=== PATIENT | male | born 1945 | race Caucasian/White ===

== ENCOUNTER 2016-11-03 09:36 | Observation (INO) | payer OTHER, MEDICARE ==
[~2016-11-03] VITALS: Ht 168.9 cm; Wt 73.0 kg
[~2016-11-03 09:36] MED LIST: ALIGN4 MG PO; AUGMENTIN875 MG PO; BARACLUDE0.5 MG PO; BUPROPION HCL150 M2; CLONAZEPAM0.5 MG PO; CLONIDINE HCL0.3 MG; CYMBALTA30 MG; CYMBALTA60 MG; DICYCLOMINE HCL10 MG PO; EFFEXOR XR75 MG PO; LABETALOL HCL200 MG; LISINOPRIL20 MG PO; LOPERAMIDE2 M1 PO; METRONIDAZOLE500 MG PO; NEXIUM20 MG PO; NEXIUM40 MG; QUESTRAN POWDE378 GM PO; QUETIAPINE FUM200 MG; SEROQUEL300 MG PO; TAMSULOSIN HCL0.4 MG; TAMSULOSIN HCL0.4 MG PO; VENLAFAXINE HCL75 M1 PO; WELLBUTRIN SR150 MG PO; ZOFRAN8 MG PO
[2016-11-03 10:26] LABS: HEMATOCRIT 49.4 % (38.0-50.0); MCH 31.1 PG (29.0-34.0); MCHC 33.2 G/DL (30.0-36.0); MCV 93.6 FL (86-99); MEAN PLAT.VOLUME 9.7 uM^3 (9.0-12.4); PLATELET COUNT 196 K/uL (156-360); RBC DIS.WIDTH-CV 12.8 % (11.8-14.6); RED BLOOD COUNT 5.28 M/uL (4.00-5.50); WHITE BLOOD COUNT 9.8 K/uL (4.1-10.2)
[2016-11-03 10:37] LABS: CHLORIDE 102 mEq/L (99-109)
[2016-11-03 10:38] LABS: SODIUM 138 mEq/L (136-147)
[2016-11-03 10:39] LABS: GLUCOSE 138 mg/dL (70-99)
[2016-11-03 10:41] LABS: ANION GAP 8 MEQ/L (2-14)
[2016-11-03 10:43] LABS: GFR ESTIMATE (CALCULATED) > 59 mL/min/
[2016-11-03 10:44] LABS: UREA NITROGEN (BUN) 19 mg/dL (9-23)
[2016-11-03 10:48] LABS: TROP-I INTERPRETATION NEGATIVE; TROPONIN-I < 0.01 ng/mL (0.0-0.30)
[2016-11-03 11:52] LABS: ADD MIUA? NO; BILIRUBIN NEGATIVE; BLOOD NEGATIVE; COLOR YELLOW ((YELLOW)); GLUCOSE (STRIP) NEGATIVE; KETONES NEGATIVE; LEUKOCYTES NEGATIVE; NITRITE NEGATIVE; PROTEIN (STRIP) NEGATIVE; SPECIFIC GRAVITY 1.017 (1.000-1.030); UCUL ADDED? NO; UROBILINOGEN 0.2 MG/DL (0.2-1.0)
[2016-11-03] MEDS ORDERED: BUPROPION XL150 MG PO (11:53)
[2016-11-03] MEDS ORDERED: NEXIUM20 MG PO (11:54)
[2016-11-03] MEDS ORDERED: VENLAFAXINE HCL75 M3 PO (11:56)
[2016-11-03 16:45] VITALS: BP 159/78
[2016-11-03 19:08] LABS: TROP-I INTERPRETATION NEGATIVE; TROPONIN-I 0.01 ng/mL (0.0-0.30)
[2016-11-03 19:47] VITALS: BP 142/70
[2016-11-04 00:39] VITALS: BP 134/64
[2016-11-04 04:52] VITALS: BP 109/65
[2016-11-04 08:03] VITALS: BP 141/73
[2016-11-04 08:38] LABS: TROP-I INTERPRETATION NEGATIVE; TROPONIN-I < 0.01 ng/mL (0.0-0.30)
[2016-11-04 10:13] LABS: HEMATOCRIT 44.4 % (38.0-50.0); MCH 31.3 PG (29.0-34.0); MCHC 33.8 G/DL (30.0-36.0); MCV 92.5 FL (86-99); MEAN PLAT.VOLUME 9.6 uM^3 (9.0-12.4); PLATELET COUNT 234 K/uL (156-360); RBC DIS.WIDTH-CV 12.6 % (11.8-14.6); RBC DIS.WIDTH-SD 42.8 % (39-53); WHITE BLOOD COUNT 13.6 K/uL (4.1-10.2)
[2016-11-04 10:26] LABS: ANION GAP 10 MEQ/L (2-14); CHLORIDE 101 MEQ/L (99-109); POTASSIUM 4.5 MEQ/L (3.7-5.4); SAMPLE HEMOLYSIS CHECK 0; SAMPLE ICTERIC CHECK 0; SAMPLE LIPEMIA CHECK 0; SODIUM 136 MEQ/L (136-147)
[2016-11-04 10:31] LABS: GFR ESTIMATE (CALCULATED) > 59 mL/min/; GLUCOSE 180 mg/dL (70-99); UREA NITROGEN (BUN) 19 mg/dL (9-23)
[2016-11-04] MEDS ORDERED: ZITHROMAX500 MG PO (10:51)
== END 2016-11-04 12:25 | disposition home or self-care (01) ==
LOC: EME 09:36 → EDOF 11:30 → 5WEST 11:30
PROVIDERS: Emergency Medicine; Internal Medicine; Nurse Practitioner Adult Health
DX: R06.2 Wheezing (principal); Z98.890 Other specified postprocedural states; Z85.89 Personal history of malignant neoplasm of other organs and systems; Z87.891 Personal history of nicotine dependence; Z86.19 Personal history of other infectious and parasitic diseases; I10 Essential (primary) hypertension; E78.5 Hyperlipidemia, unspecified; F32.9 Major depressive disorder, single episode, unspecified; F31.9 Bipolar disorder, unspecified; R51 Headache; R11.0 Nausea
CPT/HCPCS: 70450; 71010; 71020; 80048; 81003; 84484; 85027; 87040; 93005; 93971; 94640; 94640 76; 99202; 99281; 99285; G0378; J1200; J1885; J2405; J2543; J2765; J2930; J7030; J7050

== ENCOUNTER → 2016-11-18 | Outpatient (CLI) | payer OTHER, MEDICARE ==
[~2016-11-18] MED LIST changes: +BUPROPION XL150 MG PO; +VENLAFAXINE HCL75 M3 PO; +ZITHROMAX500 MG PO
== END | disposition home or self-care (01) ==
LOC: AMB 11:15
PROC: 0DJ08ZZ Inspection of Upper Intestinal Tract, Via Natural or Artificial Opening Endoscopic (ICD-10-PCS; principal; 2016-11-18)
DX: Z48.3 Aftercare following surgery for neoplasm (principal); Z85.01 Personal history of malignant neoplasm of esophagus; K22.70 Barrett's esophagus without dysplasia; K21.9 Gastro-esophageal reflux disease without esophagitis; I25.10 Atherosclerotic heart disease of native coronary artery without angina pectoris; I10 Essential (primary) hypertension; B19.10 Unspecified viral hepatitis B without hepatic coma; Z86.010 Personal history of colon polyps; F17.200 Nicotine dependence, unspecified, uncomplicated; Z88.5 Allergy status to narcotic agent

== ENCOUNTER 2017-01-03 11:22 | Emergency (ER) | payer OTHER, MEDICARE ==
[~2017-01-03] VITALS: Ht 170.2 cm; Wt 71.6 kg
[2017-01-03 13:27] LABS: HEMATOCRIT 46.6 % (38.0-50.0); MCH 31.3 PG (29.0-34.0); MCHC 34.1 G/DL (30.0-36.0); MCV 91.7 FL (86-99); MEAN PLAT.VOLUME 9.5 uM^3 (9.0-12.4); PLATELET COUNT 267 K/uL (156-360); RBC DIS.WIDTH-CV 12.7 % (11.8-14.6); RBC DIS.WIDTH-SD 42.7 % (39-53); RED BLOOD COUNT 5.08 M/uL (4.00-5.50); WHITE BLOOD COUNT 8.7 K/uL (4.1-10.2)
[2017-01-03 13:30] LABS: CHLORIDE 109 mEq/L (99-109); POTASSIUM 4.4 mEq/L (3.7-5.4); SODIUM 135 mEq/L (136-147)
[2017-01-03 13:31] LABS: GLUCOSE 106 mg/dL (70-99)
[2017-01-03 13:33] LABS: ANION GAP 8 MEQ/L (2-14)
[2017-01-03 13:35] LABS: GFR ESTIMATE (CALCULATED) > 59 mL/min/
[2017-01-03 13:36] LABS: UREA NITROGEN (BUN) 22 mg/dL (9-23)
[2017-01-03] MEDS ORDERED: DONNATAL1 TABLET PO (17:05)
[2017-01-03 17:17] VITALS: BP 142/83
[2017-01-03 18:22] LABS: C DIFF TOXIN NEGATIVE (NEGATIVE); PROBE CHECK PASS; SPECIMEN PROCESSING CONTROL PASS
[2017-01-04] MEDS ORDERED: LOMOTIL TABLET1 EACH PO (11:25)
== END 2017-01-03 17:25 | disposition home or self-care (01) ==
LOC: EME 11:22
PROVIDERS: Emergency Medicine
DX: R19.7 Diarrhea, unspecified (principal); I10 Essential (primary) hypertension; K21.9 Gastro-esophageal reflux disease without esophagitis; E78.5 Hyperlipidemia, unspecified; F17.200 Nicotine dependence, unspecified, uncomplicated; Z85.01 Personal history of malignant neoplasm of esophagus; Z87.442 Personal history of urinary calculi; Z88.6 Allergy status to analgesic agent
CPT/HCPCS: 74177; 80048; 85027; 86850; 86900; 86901; 87493; 87506; 99281; 99285; J2270; J7040

== ENCOUNTER 2017-01-04 10:00 | Emergency (ER) | payer OTHER, MEDICARE ==
[~2017-01-04] VITALS: Ht 170.2 cm; Wt 71.8 kg
[~2017-01-04 10:00] MED LIST changes: +DONNATAL1 TABLET PO
[2017-01-04 10:50] LABS: HEMATOCRIT 44.7 % (38.0-50.0); MCH 31.6 PG (29.0-34.0); MCHC 34.2 G/DL (30.0-36.0); MCV 92.4 FL (86-99); MEAN PLAT.VOLUME 9.3 uM^3 (9.0-12.4); PLATELET COUNT 270 K/uL (156-360); RBC DIS.WIDTH-CV 12.6 % (11.8-14.6); RBC DIS.WIDTH-SD 42.8 % (39-53); RED BLOOD COUNT 4.84 M/uL (4.00-5.50); WHITE BLOOD COUNT 6.8 K/uL (4.1-10.2)
[2017-01-04 11:00] LABS: CHLORIDE 107 mEq/L (99-109); POTASSIUM 4.4 mEq/L (3.7-5.4); SODIUM 137 mEq/L (136-147)
[2017-01-04 11:02] LABS: GLUCOSE 109 mg/dL (70-99)
[2017-01-04 11:03] LABS: ANION GAP 8 MEQ/L (2-14)
[2017-01-04 11:06] LABS: GFR ESTIMATE (CALCULATED) > 59 mL/min/; UREA NITROGEN (BUN) 14 mg/dL (9-23)
[2017-01-04] MEDS ORDERED: LOMOTIL TABLET1 EACH PO (11:25)
[2017-01-04 12:15] VITALS: BP 120/73
== END 2017-01-04 12:16 | disposition home or self-care (01) ==
LOC: EME 10:00
PROVIDERS: Emergency Medicine
DX: R19.7 Diarrhea, unspecified (principal); R11.2 Nausea with vomiting, unspecified; K92.1 Melena; I10 Essential (primary) hypertension; Z87.442 Personal history of urinary calculi; Z85.01 Personal history of malignant neoplasm of esophagus; F17.200 Nicotine dependence, unspecified, uncomplicated
CPT/HCPCS: 80048; 85027; 99281; 99284

== ENCOUNTER 2017-02-22 10:45 | Observation (INO) | payer OTHER, MEDICARE ==
[~2017-02-22] VITALS: Ht 170.2 cm; Wt 71.8 kg
[~2017-02-22 10:45] MED LIST changes: +LOMOTIL TABLET1 EACH PO
[2017-02-22 12:04] LABS: BASOPHIL COUNT 0.1 K/uL (0-0.1); EOSINOPHIL (%) 3.4 % (0-5); EOSINOPHIL COUNT 0.2 K/uL (0-0.3); IMMATURE GRANULOCYTE (%) 0.9 % (0.0-0.7); IMMATURE GRANULOCYTE COUNT 0.1 K/uL; LYMPHOCYTE COUNT 1.9 K/uL (1.0-2.8); MCH 31.4 PG (29.0-34.0); MCHC 33.8 G/DL (30.0-36.0); MCV 92.7 FL (86-99); MEAN PLAT.VOLUME 9.4 uM^3 (9.0-12.4); MONOCYTE (%) 7.9 % (3-12); MONOCYTE COUNT 0.5 K/uL (0-0.8); NEUTROPHIL (%) 58.9 % (45-76); PLATELET COUNT 258 K/uL (156-360); RBC DIS.WIDTH-CV 12.9 % (11.8-14.6); RBC DIS.WIDTH-SD 43.8 % (39-53); RED BLOOD COUNT 5.07 M/uL (4.00-5.50); WHITE BLOOD COUNT 6.8 K/uL (4.1-10.2)
[2017-02-22 12:17] LABS: CHLORIDE 106 mEq/L (99-109); MAGNESIUM 2.5 mg/dL (1.3-2.7); POTASSIUM 4.5 mEq/L (3.7-5.4); SODIUM 137 mEq/L (136-147)
[2017-02-22 12:19] LABS: GLUCOSE 101 mg/dL (70-99)
[2017-02-22 12:20] LABS: ANION GAP 8 MEQ/L (2-14)
[2017-02-22 12:21] LABS: TOTAL BILIRUBIN 0.4 mg/dL (0.0-1.0)
[2017-02-22 12:22] LABS: ALKALINE PHOSPHATASE 77 IU/L (3-129)
[2017-02-22 12:23] LABS: GFR ESTIMATE (CALCULATED) > 59 mL/min/
[2017-02-22 12:24] LABS: UREA NITROGEN (BUN) 25 mg/dL (9-23)
[2017-02-22 13:38] LABS: C DIFF TOXIN NEGATIVE (NEGATIVE)
[2017-02-22 13:40] LABS: PROBE CHECK PASS; SPECIMEN PROCESSING CONTROL PASS
[2017-02-22 18:35] VITALS: BP 156/73
[2017-02-22 21:16] VITALS: BP 172/85
[2017-02-22 23:26] VITALS: BP 117/67
[2017-02-23 06:00] LABS: BASOPHIL COUNT 0.1 K/uL (0-0.1); EOSINOPHIL (%) 4.5 % (0-5); EOSINOPHIL COUNT 0.3 K/uL (0-0.3); HEMATOCRIT 41.2 % (38.0-50.0); IMMATURE GRANULOCYTE (%) 0.8 % (0.0-0.7); IMMATURE GRANULOCYTE COUNT 0.1 K/uL; INSTRUMENT ABS NEUTROPHIL CT 3.6 K/uL; LYMPHOCYTE COUNT 2.1 K/uL (1.0-2.8); MCH 30.6 PG (29.0-34.0); MCHC 32.3 G/DL (30.0-36.0); MCV 94.9 FL (86-99); MEAN PLAT.VOLUME 9.3 uM^3 (9.0-12.4); MONOCYTE (%) 8.5 % (3-12); MONOCYTE COUNT 0.6 K/uL (0-0.8); NEUTROPHIL (%) 53.9 % (45-76); NEUTROPHIL COUNT 3.6 K/uL (1.8-6.4); PLATELET COUNT 203 K/uL (156-360); RBC DIS.WIDTH-CV 12.7 % (11.8-14.6); RBC DIS.WIDTH-SD 44.7 % (39-53); RED BLOOD COUNT 4.34 M/uL (4.00-5.50); WHITE BLOOD COUNT 6.6 K/uL (4.1-10.2)
[2017-02-23 06:47] LABS: ANION GAP 8 MEQ/L (2-14); CHLORIDE 107 MEQ/L (99-109); GFR ESTIMATE (CALCULATED) > 59 mL/min/; GLUCOSE 94 mg/dL (70-99); POTASSIUM 4.5 MEQ/L (3.7-5.4); SAMPLE HEMOLYSIS CHECK 0; SAMPLE ICTERIC CHECK 0; SAMPLE LIPEMIA CHECK 0; SODIUM 136 MEQ/L (136-147); UREA NITROGEN (BUN) 15 mg/dL (9-23)
[2017-02-23 08:26] VITALS: BP 137/74
[2017-02-23] MEDS ORDERED: IMODIUM A-D2 M2 PO (11:12)
[2017-02-23 11:55] VITALS: BP 145/74
[2017-02-23] MEDS ORDERED: NICOTINE PATCH1 EAC1 TD (12:01)
== END 2017-02-23 16:04 | disposition home or self-care (01) ==
LOC: EME 10:45 → EDOF 16:09 → 5WEST 16:09 → EDOF 16:09 → ENRESERV 16:15 → 5WEST 17:12 → ENPENDDIS 02-23 → 5WEST 02-23 16:04
PROVIDERS: Emergency Medicine; Hospitalist
DX: K52.9 Noninfective gastroenteritis and colitis, unspecified (principal); E86.0 Dehydration; Z85.01 Personal history of malignant neoplasm of esophagus; I10 Essential (primary) hypertension; E78.5 Hyperlipidemia, unspecified; B19.10 Unspecified viral hepatitis B without hepatic coma; K74.60 Unspecified cirrhosis of liver; F31.9 Bipolar disorder, unspecified; K21.9 Gastro-esophageal reflux disease without esophagitis; K57.30 Diverticulosis of large intestine without perforation or abscess without bleeding; Z87.11 Personal history of peptic ulcer disease; F10.10 Alcohol abuse, uncomplicated; F19.10 Other psychoactive substance abuse, uncomplicated; F17.200 Nicotine dependence, unspecified, uncomplicated; Z90.49 Acquired absence of other specified parts of digestive tract
CPT/HCPCS: 74177; 80048; 80053; 83735; 85025; 87493; 99281; 99285; G0378; J1170; J2270; J7030; J7040

== ENCOUNTER 2017-06-01 01:46 | Observation (INO) | payer OTHER, MEDICARE ==
[~2017-06-01] VITALS: Ht 170.2 cm; Wt 71.1 kg
[~2017-06-01 01:46] MED LIST changes: +IMODIUM A-D2 M2 PO; +NICOTINE PATCH1 EAC1 TD
[2017-06-01 02:15] LABS: HEMOGLOBIN 14.9 G/DL (12.5-16.6); MCH 32.5 PG (29.0-34.0); MCHC 34.7 G/DL (30.0-36.0); MCV 93.7 FL (86-99); PLATELET COUNT 238 K/uL (156-360); RBC DIS.WIDTH-CV 12.4 % (11.8-14.6); RBC DIS.WIDTH-SD 42.9 % (39-53); RED BLOOD COUNT 4.59 M/uL (4.00-5.50); WHITE BLOOD COUNT 6.4 K/uL (4.1-10.2)
[2017-06-01 02:31] LABS: CHLORIDE 107 mEq/L (99-109); POTASSIUM 4.2 mEq/L (3.7-5.4); SODIUM 138 mEq/L (136-147)
[2017-06-01 02:34] LABS: GLUCOSE 134 mg/dL (70-99); TOTAL PROTEIN 6.4 g/dL (6.4-8.3)
[2017-06-01 02:35] LABS: TOTAL BILIRUBIN 0.2 mg/dL (0.0-1.0)
[2017-06-01 02:37] LABS: ALKALINE PHOSPHATASE 77 IU/L (3-129); CREATININE 0.9 mg/dL (0.6-1.3); GFR ESTIMATE (CALCULATED) > 59 mL/min/ (58.99-99999)
[2017-06-01 02:38] LABS: UREA NITROGEN (BUN) 18 mg/dL (9-23)
[2017-06-01 02:39] LABS: AST (GOT) 30 IU/L (2-34)
[2017-06-01 02:40] LABS: ALT (GPT) 20 IU/L (3-49)
[2017-06-01 02:41] LABS: LIPASE 16 U/L (1.0-51.0)
[2017-06-01 02:42] LABS: TROP-I INTERPRETATION NEGATIVE; TROPONIN-I < 0.01 ng/mL (0.0-0.30)
[2017-06-01 08:17] VITALS: BP 172/81
[2017-06-01 09:46] LABS: TROP-I INTERPRETATION NEGATIVE; TROPONIN-I < 0.01 ng/mL (0.0-0.30)
[2017-06-01 09:54] LABS: HDL CHOLESTEROL 46 MG/DL (Desirable>=40); LDL CHOLESTEROL 58 mg/dL (Desirable<100); NON-HDL CHOLESTEROL 74 mg/dL (Desirable<160); TOTAL CHOLESTEROL 120 mg/dL (Desirable<200); TRIGLYCERIDES 79 MG/DL (Normal: <150)
[2017-06-01 11:45] VITALS: BP 127/71
[2017-06-01 15:09] LABS: TROP-I INTERPRETATION NEGATIVE; TROPONIN-I < 0.01 ng/mL (0.0-0.30)
[2017-06-01 15:37] VITALS: BP 117/69
[2017-06-01 19:20] VITALS: BP 141/65
[2017-06-02 00:37] VITALS: BP 119/56
[2017-06-02 07:35] LABS: CHLORIDE 103 MEQ/L (99-109); CREATININE 0.8 MG/DL (0.6-1.3); GFR ESTIMATE (CALCULATED) > 59 mL/min/ (58.99-99999); GLUCOSE 181 mg/dL (70-99); POTASSIUM 4.7 MEQ/L (3.7-5.4); SODIUM 139 MEQ/L (136-147); UREA NITROGEN (BUN) 13 mg/dL (9-23)
[2017-06-02 07:38] LABS: BASOPHIL (%) 0.1 % (0-1); EOSINOPHIL (%) 0 % (0-5); HEMATOCRIT 40.7 % (38.0-50.0); HEMOGLOBIN 13.8 G/DL (12.5-16.6); IMMATURE GRANULOCYTE (%) 0.4 % (0.0-0.7); LYMPHOCYTE (%) 7.5 % (15-42); LYMPHOCYTE COUNT 0.7 K/uL (1.0-2.8); MCH 31.4 PG (29.0-34.0); MCHC 33.9 G/DL (30.0-36.0); MCV 92.7 FL (86-99); MONOCYTE (%) 1.8 % (3-12); MONOCYTE COUNT 0.2 K/uL (0-0.8); NEUTROPHIL (%) 90.2 % (45-76); NEUTROPHIL COUNT 8.8 K/uL (1.8-6.4); PLATELET COUNT 257 K/uL (156-360); RBC DIS.WIDTH-CV 12.4 % (11.8-14.6); RBC DIS.WIDTH-SD 42.6 % (39-53); RED BLOOD COUNT 4.39 M/uL (4.00-5.50); WHITE BLOOD COUNT 9.8 K/uL (4.1-10.2)
[2017-06-02 08:02] VITALS: BP 123/68
[2017-06-02] MEDS ORDERED: SPIRIVA RESPIMAT4 GM IH (10:39)
[2017-06-02] MEDS ORDERED: PREDNISONE10 MG PO (10:39)
[2017-06-02] MEDS ORDERED: ADVAIR HFA120 INHALA IH (10:39)
[2017-06-02] MEDS ORDERED: NICOTINE PATCH1 EAC1 TD (10:39)
[2017-06-02] MEDS ORDERED: AUGMENTIN875 MG PO (10:39)
[2017-06-02] MEDS ORDERED: PROAIR HFA8.5 GM IH (10:39)
== END 2017-06-02 12:13 | disposition home or self-care (01) ==
LOC: EME 01:46 → 5WEST 05:43 → EDOF 05:43 → ENRESERV 05:45 → 5WEST 07:59 → ENPENDDIS 06-02 → 5WEST 06-02 12:13
PROVIDERS: Emergency Medicine; Hospitalist; Physician Assistant
DX: J18.9 Pneumonia, unspecified organism (principal); R07.89 Other chest pain; Z85.01 Personal history of malignant neoplasm of esophagus; I10 Essential (primary) hypertension; E78.5 Hyperlipidemia, unspecified; F31.9 Bipolar disorder, unspecified; K74.60 Unspecified cirrhosis of liver; B19.10 Unspecified viral hepatitis B without hepatic coma; F17.210 Nicotine dependence, cigarettes, uncomplicated; K21.9 Gastro-esophageal reflux disease without esophagitis; F10.11 Alcohol abuse, in remission; F12.90 Cannabis use, unspecified, uncomplicated; Z90.49 Acquired absence of other specified parts of digestive tract; Z88.5 Allergy status to narcotic agent; Z82.49 Family history of ischemic heart disease and other diseases of the circulatory system
CPT/HCPCS: 71275; 74177; 80048; 80053; 80061; 83690; 83880; 84484; 85025; 85027; 87070; 87205; 87502; 93005; 94640; 94640 76; 94664; 99202; 99281; 99285; G0378; J0696; J1200; J1644; J2920; J2930; J7030